=== PATIENT | male | born 1970 | race Two or more races ===

== ENCOUNTER 2017-10-13 14:55 | Inpatient (IN) | payer OTHER ==
[~2017-10-13] VITALS: Ht 182.9 cm; Wt 181.4 kg
[~2017-10-13 14:55] MED LIST: AMOX1TAB12 PO; CATAFLAM50 MG PO; CIPRO500 MG PO
[2017-10-13] MEDS ORDERED: HYZAAR 100-251 EACH (15:13)
[2017-10-13] MEDS ORDERED: DESCOVY 200-251 EACH (15:15)
[2017-10-13] MEDS ORDERED: TIVICAY10 MG (15:15)
[2017-10-16] MEDS ORDERED: LEVAQUIN750 MG PO (11:50)
[2017-10-16] MEDS ORDERED: LOSARTAN-HCTZ1 EAC2 PO (11:50)
== END 2017-10-16 12:48 | disposition home or self-care (01) | DRG 977 ==
LOC: ER 14:55 → SEC-K 21:20 → SURG 21:20 → MEDJ 10-14 14:35
PROC: BW41ZZZ Ultrasonography of Abdomen and Pelvis (ICD-10-PCS; principal; 2017-10-14)
DX: B20 Human immunodeficiency virus [HIV] disease (principal); N10 Acute pyelonephritis; E11.65 Type 2 diabetes mellitus with hyperglycemia; B96.29 Other Escherichia coli [E. coli] as the cause of diseases classified elsewhere

== ENCOUNTER → 2018-09-24 | Day surgery (SDC) | payer OTHER ==
[~2018-09-24] MED LIST changes: +DESCOVY 200-251 EACH; +HYZAAR 100-251 EACH; +LEVAQUIN750 MG PO; +LOSARTAN-HCTZ1 EAC2 PO; +NEXIUM 24HR20 MG PO; +TIVICAY10 MG
== END | disposition home or self-care (01) ==
LOC: ADM 09-21 14:00 → AMB-ENDOS 09:02
DX: D13.1 Benign neoplasm of stomach (principal)